=== PATIENT | female | born 1995 | race Caucasian/White ===

== ENCOUNTER 2021-08-25 23:06 | Emergency (ER) | payer SELFPAY ==
[~2021-08-25] VITALS: Ht 157.5 cm; Wt 74.8 kg
[2021-08-25 23:15] VITALS: BP 122/80
--- NOTE | 2021-08-25 23:18 | NUR ---
TO LOBBY A/W BED AMBULATORY
[2021-08-26] MEDS ORDERED: AMOXIL/CLAVULANATE 875/125 MG 1 TAB PO ONE (00:50)
[2021-08-26] MEDS ORDERED: AMOX-999 PO (00:51)
[2021-08-26 01:25] VITALS: BP 122/80
--- NOTE | 2021-08-26 01:26 | NUR ---
Patient discharged with v/s stable. Written and verbal after care instructions given and explained. Patient verbalized understanding. Ambulatory with steady gait. All questions addressed prior to discharge. Advised to follow up with PMD.
== END 2021-08-26 01:26 | disposition home or self-care (01) ==
LOC: MED 23:06
DX: S60.511A Abrasion of right hand, initial encounter (principal); Z79.899 Other long term (current) drug therapy; W54.0XXA Bitten by dog, initial encounter; Y93.89 Activity, other specified; Y92.89 Other specified places as the place of occurrence of the external cause; Y99.8 Other external cause status
CPT/HCPCS: 90471; 90715; 99283

== ENCOUNTER 2023-06-18 09:33 | Emergency (ER) | payer BC ==
[~2023-06-18] VITALS: Ht 162.6 cm; Wt 77.1 kg
[~2023-06-18 09:33] MED LIST: AMOX-999 PO
[2023-06-18 10:03] VITALS: BP 114/68; PULSE 77; RESP 18; TEMP 97.1; O2SAT 99
[2023-06-18 12:00] VITALS: O2SAT 99
[2023-06-18] MEDS ORDERED: CYCL-711 PO (12:03)
[2023-06-18] MEDS ORDERED: IBUP-1842 PO (12:03)
[2023-06-18] MEDS ORDERED: DICL100G32 TP (12:03)
[2023-06-18] MEDS ORDERED: KETOROLAC 30 MG/ML VIAL IM ONE (12:05)
[2023-06-18 12:36] VITALS: BP 120/68; PULSE 78; RESP 13; TEMP 98; O2SAT 99
== END 2023-06-18 12:36 | disposition home or self-care (01) ==
LOC: MED 09:33
DX: M54.50 Low back pain, unspecified (principal); Z79.899 Other long term (current) drug therapy
CPT/HCPCS: 81025; 96372; 99283; J1885

== ENCOUNTER 2023-08-22 21:03 | Emergency (ER) | payer BC ==
[~2023-08-22] VITALS: Ht 162.6 cm; Wt 83.9 kg
[~2023-08-22 21:03] MED LIST changes: +CYCL-711 PO; +DICL100G32 TP; +IBUP-1842 PO
[2023-08-22 21:18] VITALS: BP 100/63; PULSE 84; RESP 18; TEMP 98.7; O2SAT 99
[2023-08-22 22:04] LABS: FLU A ANTIGEN negative (NEGATIVE); FLU B ANTIGEN NEGATIVE (NEGATIVE)
[2023-08-22] MEDS ORDERED: KETOROLAC 30 MG/ML VIAL IM ONE (22:45)
[2023-08-22] MEDS ORDERED: ALBUTEROL SULFATE/IPRATROPIU 3 ML SOL IH ONE (22:45)
[2023-08-22 22:46] VITALS: PULSE 84; RESP 18; O2SAT 99
[2023-08-22] MEDS ORDERED: ROBAC PO (22:48)
[2023-08-22] MEDS ORDERED: PRED20TA5 PO (22:48)
== END 2023-08-22 23:06 | disposition home or self-care (01) ==
LOC: MED 21:03
DX: J20.9 Acute bronchitis, unspecified (principal); Z20.822 Contact with and (suspected) exposure to COVID-19; J45.909 Unspecified asthma, uncomplicated; Z98.890 Other specified postprocedural states; Z79.899 Other long term (current) drug therapy; Z79.1 Long term (current) use of non-steroidal anti-inflammatories (NSAID); Z79.2 Long term (current) use of antibiotics
CPT/HCPCS: 71045; 87426; 87804; 94640; 96372; 99284; J1885

== ENCOUNTER 2023-09-14 19:01 | Emergency (ER) | payer BC ==
[~2023-09-14] VITALS: Ht 162.6 cm; Wt 81.6 kg
[~2023-09-14 19:01] MED LIST changes: +PRED20TA5 PO; +ROBAC PO
[2023-09-14 19:54] VITALS: BP 138/74; PULSE 74; RESP 16; TEMP 97.4; O2SAT 99
[2023-09-14] MEDS ORDERED: AMOX500C25 PO (20:20)
== END 2023-09-14 20:24 | disposition home or self-care (01) ==
LOC: MED 19:01
DX: H66.91 Otitis media, unspecified, right ear (principal); J45.909 Unspecified asthma, uncomplicated; Z79.899 Other long term (current) drug therapy
CPT/HCPCS: 99283

== ENCOUNTER 2024-06-08 21:08 | Emergency (ER) | payer SELFPAY ==
[~2024-06-08] VITALS: Ht 162.6 cm; Wt 86.2 kg
[~2024-06-08 21:08] MED LIST changes: +AMOX500C25 PO
[2024-06-08 21:31] VITALS: BP 129/64; PULSE 87; RESP 16; TEMP 97.1; O2SAT 98
[2024-06-08 22:26] VITALS: BP 129/64; PULSE 87; RESP 16; TEMP 97.1; O2SAT 98
[2024-06-08] MEDS: KETOROLAC 30 MG/ML VIAL IM ONE (22:56)
[2024-06-08] MEDS: DEXAMETHASONE 4 MG/ML VIAL PO ONE (23:02)
== END 2024-06-08 23:08 | disposition home or self-care (01) ==
LOC: MED 21:08
DX: J02.9 Acute pharyngitis, unspecified (principal); H92.02 Otalgia, left ear; J45.909 Unspecified asthma, uncomplicated; Z90.89 Acquired absence of other organs; Z79.899 Other long term (current) drug therapy
CPT/HCPCS: 87081; 96372; 99283; J1100; J1885